=== PATIENT | male | born 1965 | race Caucasian/White ===

== ENCOUNTER 2018-12-22 15:51 | Emergency (ER) | payer OTHER ==
[~2018-12-22] VITALS: Ht 167.6 cm; Wt 79.4 kg
[2018-12-22 16:19] LABS: ABSOLUTE NEUTROPHILS 2.6 thou/uL (1.4-8.2); BASOPHILS 0.4 % (0.0-2.0); EOSINOPHILS 1.3 % (0.0-3.0); HEMATOCRIT 40.7 % (42.0-52.0); LYMPHOCYTES 29.2 % (24.0-44.0); MCH 29.6 pg (26.0-34.0); MCHC 34.3 g/dL (28.0-37.0); MCV 86.4 fL (80.0-100.0); MONOCYTES 9.1 % (1.0-8.0); PLATELET COUNT 124 thou/uL (150-400); RBC 4.71 mil/uL (4.50-6.00); RDW 13.4 % (10.5-14.5); WBC 4.3 thou/uL (4.0-11.0)
[2018-12-22 16:27] LABS: ANION GAP 12 mmol/L (7-16); BUN 16 mg/dL (7-18); CALCIUM 9.8 mg/dL (8.5-10.1); CHLORIDE 103 mmol/L (98-107); CO2 26 mmol/L (21-32); CREATININE 1.1 mg/dL (0.7-1.3); GLUCOSE 82 mg/dL (74-106); POTASSIUM 4.2 mmol/L (3.5-5.1); SODIUM 141 mmol/L (136-145)
[2018-12-22 16:35] LABS: TROPONIN-I <0.06 ng/mL (<0.06)
[2018-12-22 17:43] VITALS: BP 124/72
--- NOTE | 2018-12-23 07:14 | EKG ---
[address] [place] [address] [place] [address] ELECTROCARDIOGRAM REPORT Name: VELASUQEZGERMAN Room #: SHAYNE Mcnulty#: [id number] ������������������ Admission: 12/22/18 ������������������ Attend Phys: Discharge: 12/22/18 ������������������ Date of : 65 Report #: [id number] ����������������������������������������������������������������� [id number] THIS REPORT FOR: //name// [facility] ED Test Date: 2018-12-22 Test Time: 15:55:36 Pat Name: GERMAN VELASQUEZ Department: Room: Gender: [employer]: SUBHA : 1965 Requested By: Pastor Sotelo Order Number: [id number] MD: Anastacio Berrios Measurements Intervals [place] Rate: 97 P: 34 CT: 196 QRS: 26 QRSD: 92 T: 40 QT: 345 QTc: 439 Interpretive Statements Sinus rhythm Normal tracing No previous ECG available for comparison Electronically Signed On 12-23-2018 7:14:21 CDT by Anastacio Berrios [email or web address] ��������������������������������������������� <ELECTRONICALLY SIGNED> ���������������������������������������� By: Anastacio Berrios MD, [facility] ��������������������������������������������� 12/23/18 0714 1555 1555 Anastacio Berrios MD, FACC /EPI
== END 2018-12-22 17:44 | disposition home or self-care (01) ==
LOC: ER 15:51
PROVIDERS: Emergency Medicine
DX: R07.89 Other chest pain (principal); E11.9 Type 2 diabetes mellitus without complications